=== PATIENT | female | born 1940 | race Caucasian/White ===

== ENCOUNTER 2022-10-25 01:21 | Outpatient (CLI) | payer MEDICARE, SELFPAY ==
--- NOTE | 2022-10-25 08:15 | DI.US_ITS ---
Exam(s) US THYROID EXAM: US THYROID CLINICAL HISTORY: assess nodules,acute thyroiditis,e06.0. TECHNIQUE: Ultrasound thyroid performed using standard protocol. COMPARISON: US THYROID ULTRASOUND from 12/03/2007 FINDINGS: This patient forms me days she has been recently treated with steroid for thyroiditis. Both thyroid lobes as well as the isthmus exhibit normal size. There are 2 solid nodules in left lob e. The echotexture of the right lobe is heterogeneous but without truly discernible nodules. The is thmus is not thickened. The left lobe is discussed 1st because the contains nodules. LEFT THYROID LOBE: Measures 1.5 cm AP x 1.6 cm wide x 3.9 cm craniocaudal There are 2 solid nodules in left lobe. The dominant solid nodule is located more laterally and is l arger of the 2. This nodule measures 1.6 cm AP x 1.4 cm wide by 2.5 cm craniocaudal. Composition: Predominant solid= 2 points Echogenicity: Isoechoic compared to surrounding parenchyma= 1 point Shape: This solid nodule is taller than wider in the transverse plane=3 points. Margin: Smooth- 0 points Echogenic Foci: None= 0 points Total Points for this nodule: 6 ACR Ti-Rads Category: TR4 This TR4 nodule requires ultrasound-guided FNA as it measures greater than 1.5 cm Nodule #2. This is the smaller of the 2 nodules in the left lobe and more medially located, located between the dominant nodule and the isthmus. Size: Measures 1.0 x 0.5 x 1.0 cm. Cm Composition: Solid-2 points Echogenicity: Isoechoic-1 point Shape: Wider than taller in the transverse plane-0 points Margin: Smooth-0 points Echogenic Foci: Macrocalcifications- 1 point There is no significant left-sided lymphadenopathy. ISTHMUS: Normal thickness. There are no nodules in the isthmus. RIGHT THYROID LOBE: Measures 1.5 cm AP x 1.3 wide x 3.7 cm craniocaudal The right lobe exhibits heterogeneous echotexture but no truly discernible nodules LYMPH NODES: There is no significant lymphadenopathy on either side of the neck.. IMPRESSION: 1. As above. The dominant solid TR4 nodule in the left lobe qualifies for ultrasound-guided FNA as i t measures significantly larger than 1.5 cm which is the threshold for biopsy for TR4 nodules. The 2 nd-smaller nodule in the left lobe is also TR4 but measures less than 1.5 cm and does not require bio psy at this time. 2. No significant nodules evident in the right lobe nor within the isthmus. 3. There is no significant lymphadenopathy. DATA REPOSITORY:
== END 2022-10-25 01:41 ==
PROVIDERS: PCP Family Medicine; Visit Provider Otolaryngology
DX: E06.0 Acute thyroiditis (principal); R93.89 Abnormal findings on diagnostic imaging of other specified body structures
CPT/HCPCS: 76536

== ENCOUNTER 2023-01-01 01:51 | Outpatient (CLI) | payer MEDICARE, SELFPAY ==
--- NOTE | 2023-01-01 07:15 | DI.US_ITS ---
Exam(s) US NEEDLE LOCAL OTHER WO RAD EXAM: Left thyroid nodule, TR 4,ULTRASOUND GUIDED BX, E04.2 COMPARISON: No exams were available for comparison TECHNIQUE: Ultrasound performed using standard protocol. FINDINGS: Sonography was provided for Dr. Whalen during the performance of a ultrasound-guided thyroid biopsy. Please refer to the procedure report for complete details. DATA REPOSITORY:
--- NOTE | 2023-01-01 11:30 | PAPNONF_PTH ---
PATIENT: Adamaris Mesa LOC: [facility] U#:[id number] AGE/SX: 82/F ROOM: RE01/01/[address]: Leroy Whalen MD : [id number] BED: DIS: 01/01/2023 SPEC #: [id number] RECD: 01/01/23 13:06 STATUS: ANAYA REBib #: [id number] DAVID: 01/01/23 11:[address]: Leroy Whalen DEPT: [facility] Cytology RECD BY: Miranda Alfonso ENTERED: 01/01/23 13:06 SP TYPE: JESSICA MONTOYA DR: Elda Garibay Tissues: 1 - BODY FLUID CYTO-FINE NEEDLE [facility] Procedures: BODY FLUID CYTO-FINE NEEDLE [facility]IR[facility] Comments: [id number] (PATH FNA CONSULT) (REFRIGERATED)
--- NOTE | 2023-01-01 14:01 | OPPNE_ITS ---
Date of service: 01/01/23 Time of Service: 14:01 Procedure Note Date of procedure: 01/01/23 Procedure: Ultrasound Guided FNA, Left thyroid nodule, pathology present Surgeon/Proceduralist/Physician: Leroy Whalen Procedure Indications: Patient with a left-sided TR 4 nodule meeting criteria for FNA. Procedure Description: I reviewed the findings with the patient. We discussed options. She wished to proceed with ultrasound-guided FNA. Risks including bleeding, infection, failure to obtain an answer, and need for further treatment were discussed at [facility]. Consent was filled out and signed. The below was then performed. She was prepped and draped in appropriate fashion. Ultrasound was used to localize the nodule, and then 1% lidocaine with 1/100,000 epinephrine injected into the skin and subcutaneous tissues medial to the nodule. Multiple passes were made with a 25-gauge needle, and the specimen was checked for cellular adequacy. 2 passes were required to hit cellular adequacy. After this, 2 additional samples for potential Afirma were drawn. Wound was inspected revealing no bleeding. After ensuring adequate hemostasis, a sterile dressing was applied and the patient was allowed to slowly sit up, and then to ambulate. Her vital signs remained stable. She will call if she does not hear from me within 7 days with regard to the results. She will remove the bandage tonight and not replace it. She will call with any signs of infection. She will use Tylenol or ibuprofen for any discomfort. She had no further questions. She is comfortable with the plan.
== END 2023-01-01 02:11 ==
LOC: DI 01:53
PROVIDERS: PCP Family Medicine; Visit Provider Otolaryngology
DX: E04.2 Nontoxic multinodular goiter (principal)
CPT/HCPCS: 10005; 76942; 88104

== ENCOUNTER → 2023-12-26 04:57 | Outpatient (CLI) | payer MEDICARE, SELFPAY ==
--- NOTE | 2023-12-26 08:15 | DI.US_ITS ---
Exam(s) US THYROID EXAM: US THYROID CLINICAL HISTORY: Assess for change,multinodular thyroid,e04.2. TECHNIQUE: Ultrasound thyroid performed using standard protocol. COMPARISON: US US THYROID from 10/25/2022 FINDINGS: ISTHMUS: 2 mm RIGHT LOBE: Size: 3.7 x 1.6 x 1.0 cm Echogenicity: Normal. Vascularity: Normal. Nodules: None. LEFT LOBE: Size: 3.6 x 1.6 x 1.8 cm Echogenicity: Normal. Vascularity: Normal. Nodules: There is again seen a nodule in the upper pole of the left lobe of the thyroid gland. It me asures 2.8 x 1.6 x 1.5 cm. This compares to 2.3 x 1.5 x 1.5 cm. It is solid and isoechoic. It is t aller than wide. The findings are consistent with a TI rads level 4 nodule. The patient has had a p rior biopsy of this nodule on 01/01/2023. The other nodule seen medially in the left lobe is less pro minent on the current examination. Solid and hyperechoic. It is unchanged in size. Biopsy is not r ecommended based on TI rads level. OTHER FINDINGS: None. IMPRESSION: Nodule in the upper pole of the left lobe of the thyroid gland measures 2.8 x 1.6 x 1.5 cm on the cur rent examination. This compares to 2.3 x 1.5 x 1.5 cm. The patient has had this nodule previously b iopsied on 01/01/2023. No new nodules are seen. DATA REPOSITORY:
== END ==
PROVIDERS: PCP Family Medicine; Visit Provider Otolaryngology
DX: E04.2 Nontoxic multinodular goiter (principal)
CPT/HCPCS: 76536